=== PATIENT | female | born 1935 | race Two or more races ===

== ENCOUNTER 2024-01-02 11:19 | Emergency (ER) | payer OTHER ==
[~2024-01-02] VITALS: Ht 157.5 cm; Wt 56.7 kg
[2024-01-02] MEDS ORDERED: KEPPRA500 MG (11:32)
[2024-01-02] MEDS ORDERED: NAMENDA10 MG (11:33)
[2024-01-02] MEDS ORDERED: 0.9 % SODIUM CHLORIDE 1,000 ML IV STA (12:08)
[2024-01-02 13:15] LABS: HEMATOCRIT 41.1 % (36.0-45.00); MEAN CELL VOLUME 89.1 fL (80.00-100.00); MEAN CORPUSCULAR HEMOGLOBIN 30.4 pg (27.00-32.0); MEAN CORPUSCULAR HGB CONC 34.1 g/dl (32.0-36.0); PLATELET COUNT 225 K/uL (150-450); RED BLOOD COUNT 4.61 M/uL (4.00-6.00); RED CELL DISTRIBUTION WIDTH 13.8 % (11.5-14.5)
[2024-01-02 13:44] LABS: ALBUMIN 3.2 gm/dL (3.4-5.0); ALKALINE PHOSPHATASE 76 U/L (50-136); ALT/SGPT 24 U/L (12-78); ANION GAP 1 (10.0-20.0); AST/SGOT 15 U/L (15-37); BILIRUBIN TOTAL 0.27 mg/dL (0.3-1.2); BILIRUBIN,CONJUGATED < 0.10 mg/dL (0.0-0.2); BILIRUBIN,UNCONJUGATED 0.17 mg/dL (0.0-0.6); BLOOD UREA NITROGEN 25 mg/dL (7-18); BUN CREA RATIO 47 (7.0-25.0); CALCIUM 9.7 mg/dL (8.5-10.1); CARBON DIOXIDE 37 mEq/L (21-32); CHLORIDE 106 mmol/L (98-107); CREATININE SERUM 0.53 mg/dL (0.55-1.02); GFR 108.87; GLUCOSE FASTING 80 mg/dL (65-100); OSMOLALITY SERUM 283 MOSM/KG (275-295); SODIUM 140 mmol/L (136-145); TOTAL PROTEIN 6.5 gm/dL (6.4-8.2)
[2024-01-02 15:13] LABS: PH,URINE 7.5 (5.0-8.0); URINE APPEARANCE Clear; URINE BILIRRUBIN Negative (NEGATIVE); URINE BLOOD Negative; URINE COLOR Yellow; URINE GLUCOSE Negative (NEGATIVE); URINE LEUKOCYTE Negative; URINE NITRATE Negative; URINE PROTEIN Negative (NEGATIVE); URINE UROBILINOGEN 0.2 E.U./dl
[2024-01-02 15:20] LABS: URINE BACTERIA 37.7 uL (0.0-1933); URINE WBC 2.7 uL (0.0-23.2)
[2024-01-02 15:53] LABS: URINE EPITHELIAL CELLS 1.3 uL (0.0-38.8)
== END 2024-01-02 17:18 | disposition home or self-care (01) ==
LOC: ER 11:19
PROVIDERS: General Practice
DX: N93.9 Abnormal uterine and vaginal bleeding, unspecified (principal); Z88.0 Allergy status to penicillin
CPT/HCPCS: 36415; 74176; 96365; 96366; 99284; J7030

== ENCOUNTER 2024-01-21 17:19 | Emergency (ER) | payer OTHER ==
[~2024-01-21] VITALS: Ht 152.4 cm; Wt 56.7 kg
[~2024-01-21 17:19] MED LIST: KEPPRA500 MG; NAMENDA10 MG
[2024-01-21] MEDS ORDERED: 0.9 % SODIUM CHLORIDE 500 ML IV STA (21:27)
[2024-01-21] MEDS ORDERED: CIPROFLOXACIN IN 5 % DEXTROSE 400 MG/200 ML PIGGYBAG IV STA (21:27)
[2024-01-21 21:55] LABS: HEMATOCRIT 42.4 % (36.0-45.00); HEMOGLOBIN 14.1 g/dL (12.0-15.00); MEAN CELL VOLUME 87.5 fL (80.00-100.00); MEAN CORPUSCULAR HEMOGLOBIN 29.1 pg (27.00-32.0); MEAN CORPUSCULAR HGB CONC 33.2 g/dl (32.0-36.0); PLATELET COUNT 331 K/uL (150-450); RED BLOOD COUNT 4.84 M/uL (4.00-6.00); RED CELL DISTRIBUTION WIDTH 14.1 % (11.5-14.5)
[2024-01-21] MEDS ORDERED: 0.9 % SODIUM CHLORIDE 1,000 ML IV SCH (22:00)
[2024-01-21 22:06] LABS: PH,URINE >= 9.0 (5.0-8.0); URINE APPEARANCE Turbid; URINE BILIRRUBIN Negative (NEGATIVE); URINE BLOOD Large; URINE COLOR Yellow; URINE GLUCOSE Negative (NEGATIVE); URINE LEUKOCYTE Large; URINE NITRATE Negative; URINE PROTEIN 30 (NEGATIVE); URINE UROBILINOGEN 0.2 E.U./dl
[2024-01-21 22:09] LABS: URINE EPITHELIAL CELLS 59.2 uL (0.0-38.8); URINE RBC 1761.3 uL (0.0-20.8); URINE WBC 175.1 uL (0.0-23.2)
[2024-01-21 22:14] LABS: URINE BACTERIA > 9821.5 uL (0.0-1933)
[2024-01-21 22:15] LABS: ALBUMIN 3.2 gm/dL (3.4-5.0); BILIRUBIN TOTAL 0.27 mg/dL (0.3-1.2); CALCIUM 9.5 mg/dL (8.5-10.1); CREATININE SERUM 0.76 mg/dL (0.55-1.02); GFR 71.82; GLOBULINA 3.5 G/DL (2.4-3.5); POTASSIUM 4.56 mEq/L (3.5-5.1); TOTAL PROTEIN 6.7 gm/dL (6.4-8.2)
== END 2024-01-22 01:08 | disposition home or self-care (01) ==
LOC: ER 17:19
DX: R31.9 Hematuria, unspecified (principal); B96.89 Other specified bacterial agents as the cause of diseases classified elsewhere; Z88.0 Allergy status to penicillin
CPT/HCPCS: 36415; 51702; 96365; 96366; 99282; J0744; J7030

== ENCOUNTER 2024-11-19 20:37 | Emergency (ER) | payer OTHER ==
[~2024-11-19] VITALS: Ht 162.6 cm; Wt 72.6 kg
[2024-11-19] MEDS ORDERED: ACETAMINOPHEN 650 MG SUPP.RECT RECTAL ONE ×2 (22:08→22:15)
[2024-11-19 22:18] LABS: HEMATOCRIT 41.4 % (36.0-45.00); HEMOGLOBIN 13.5 g/dL (12.0-15.00); MEAN CELL VOLUME 89.1 fL (80.00-100.00); MEAN CORPUSCULAR HEMOGLOBIN 29.1 pg (27.00-32.0); MEAN CORPUSCULAR HGB CONC 32.7 g/dl (32.0-36.0); PLATELET COUNT 254 K/uL (150-450); RED BLOOD COUNT 4.65 M/uL (4.00-6.00); RED CELL DISTRIBUTION WIDTH 13.9 % (11.5-14.5)
[2024-11-19 23:03] LABS: PH,URINE 7.5 (5.0-8.0); URINE APPEARANCE Clear; URINE BILIRRUBIN Negative (NEGATIVE); URINE BLOOD NHT; URINE COLOR Yellow; URINE GLUCOSE Negative (NEGATIVE); URINE KETONE Negative (NEGATIVE); URINE LEUKOCYTE Negative; URINE NITRATE Negative; URINE PROTEIN Negative (NEGATIVE); URINE UROBILINOGEN 0.2 E.U./dl
[2024-11-19 23:04] LABS: URINE BACTERIA 8.5 uL (0.0-1933); URINE RBC 87.4 uL (0.0-20.8); URINE WBC 3.1 uL (0.0-23.2)
[2024-11-19 23:13] LABS: BILIRUBIN TOTAL 0.29 mg/dL (0.3-1.2); CALCIUM 9.3 mg/dL (8.5-10.1); CREATININE SERUM 0.56 mg/dL (0.55-1.02); GFR 101.93; POTASSIUM 4.33 mEq/L (3.5-5.1)
[2024-11-19 23:27] LABS: URINE CAST 0.29 uL (0.0-1.40); URINE EPITHELIAL CELLS 1.1 uL (0.0-38.8)
[2024-11-20] MEDS ORDERED: 0.9 % SODIUM CHLORIDE 1,000 ML IV SCH (01:00)
[2024-11-20 05:29] LABS: HEMATOCRIT 40.5 % (36.0-45.00); HEMOGLOBIN 13.5 g/dL (12.0-15.00); MEAN CELL VOLUME 88.8 fL (80.00-100.00); MEAN CORPUSCULAR HEMOGLOBIN 29.7 pg (27.00-32.0); MEAN CORPUSCULAR HGB CONC 33.4 g/dl (32.0-36.0); PLATELET COUNT 243 K/uL (150-450); RED BLOOD COUNT 4.55 M/uL (4.00-6.00); RED CELL DISTRIBUTION WIDTH 14.1 % (11.5-14.5)
== END 2024-11-20 09:50 | disposition home or self-care (01) ==
LOC: ER 20:37
PROVIDERS: Emergency Medicine
DX: R50.9 Fever, unspecified (principal); Z20.822 Contact with and (suspected) exposure to COVID-19; Z88.0 Allergy status to penicillin
CPT/HCPCS: 36415; 71045; 93005; 96365; 96366; 99283; J7030

== ENCOUNTER → 2024-12-01 | Emergency (ER) | payer OTHER ==
[~2024-12-01] VITALS: Ht 165.1 cm; Wt 54.4 kg
[~2024-12-01] MED LIST changes: +SODIUM CHLORIDE 0.45 % 500 ML IV ONE; +ZYNCOF 20-400120 ML PO; +[UNRECOGNIZED DRUG - OTHER] OP
[2024-12-02 01:40] LABS: HEMOGLOBIN 13.8 g/dL (12.0-15.00); MEAN CELL VOLUME 87.4 fL (80.00-100.00); MEAN CORPUSCULAR HEMOGLOBIN 29.4 pg (27.00-32.0); MEAN CORPUSCULAR HGB CONC 33.7 g/dl (32.0-36.0); PLATELET COUNT 334 K/uL (150-450); RED BLOOD COUNT 4.69 M/uL (4.00-6.00)
[2024-12-02 01:48] LABS: PARTIAL THROMBOPLASTIN TIME 24.8 SECONDS (22.0-34.0); PROTHROMBIN TIME 10.9 SECONDS (9.0-11.5)
[2024-12-02 01:54] LABS: ALBUMIN 3.1 gm/dL (3.4-5.0); BILIRUBIN TOTAL 0.32 mg/dL (0.3-1.2); CALCIUM 9.4 mg/dL (8.5-10.1); CREATININE SERUM 0.56 mg/dL (0.55-1.02); GFR 101.93; GLOBULINA 3.8 G/DL (2.4-3.5); POTASSIUM 4.42 mEq/L (3.5-5.1); TOTAL PROTEIN 6.9 gm/dL (6.4-8.2)
[2024-12-02 03:07] LABS: PH,URINE 8.5 (5.0-8.0); URINE APPEARANCE Turbid; URINE BILIRRUBIN Negative (NEGATIVE); URINE BLOOD Negative; URINE COLOR Yellow; URINE GLUCOSE Negative (NEGATIVE); URINE KETONE Negative (NEGATIVE); URINE LEUKOCYTE Small; URINE NITRATE Negative; URINE PROTEIN Negative (NEGATIVE); URINE UROBILINOGEN 0.2 E.U./dl
[2024-12-02 03:11] LABS: URINE BACTERIA 29.3 uL (0.0-1933); URINE RBC 65.6 uL (0.0-20.8); URINE WBC 69.3 uL (0.0-23.2)
[2024-12-02 03:27] LABS: URINE CAST 0.14 uL (0.0-1.40); URINE CRYSTALS FEW /HPF; URINE EPITHELIAL CELLS 1.2 uL (0.0-38.8)
== END | disposition home or self-care (01) ==
LOC: ER 21:08
PROVIDERS: General Practice
DX: I10 Essential (primary) hypertension (principal); R25.9 Unspecified abnormal involuntary movements; Z88.0 Allergy status to penicillin